=== PATIENT | female | born 1985 | race Caucasian/White ===

== ENCOUNTER 2018-05-14 02:31 | Emergency (ER) | payer OTHER ==
[~2018-05-14] VITALS: Ht 162.6 cm; Wt 59.0 kg
[~2018-05-14 02:31] MED LIST: ANTIVERT25 MG PO; NORCO 5-325 TA1 EACH PO; OMEGA-31000 M1 PO; PROBIOTIC1 EAC1 PO; TRINATE TABLET1 TAB PO; ZOFRAN ODT4 MG PO
[2018-05-14] MEDS ORDERED: EFFEXOR XR75 MG PO (02:40)
[2018-05-14] MEDS ORDERED: ADDERALL 10 MG10 MG PO (02:41)
[2018-05-14] MEDS ORDERED: DOXYCYCLINE 10100 M1 PO (04:43)
[2018-05-14] MEDS ORDERED: PERCOCET 7.5-31 EACH PO (04:43)
[2018-05-14 05:18] VITALS: BP 101/65
== END 2018-05-14 05:18 | disposition home or self-care (01) ==
LOC: M.ERS 02:31
DX: S62.624B Displaced fracture of middle phalanx of right ring finger, initial encounter for open fracture (principal); S61.214A Laceration without foreign body of right ring finger without damage to nail, initial encounter; Z88.2 Allergy status to sulfonamides; W54.0XXA Bitten by dog, initial encounter; Y93.89 Activity, other specified; Y92.89 Other specified places as the place of occurrence of the external cause; Y99.8 Other external cause status

== ENCOUNTER 2018-05-14 16:21 | Emergency (ER) | payer OTHER ==
[~2018-05-14] VITALS: Ht 162.6 cm; Wt 59.0 kg
[~2018-05-14 16:21] MED LIST changes: +ADDERALL 10 MG10 MG PO; +DOXYCYCLINE 10100 M1 PO; +EFFEXOR XR75 MG PO; +PERCOCET 7.5-31 EACH PO
[2018-05-14 16:25] VITALS: BP 112/73
== END 2018-05-14 18:01 | disposition home or self-care (01) ==
LOC: M.ERS 16:21
DX: S61.214A Laceration without foreign body of right ring finger without damage to nail, initial encounter (principal); Z88.2 Allergy status to sulfonamides; Z98.890 Other specified postprocedural states; W54.0XXA Bitten by dog, initial encounter; Y92.89 Other specified places as the place of occurrence of the external cause; Y93.89 Activity, other specified; Y99.8 Other external cause status

== ENCOUNTER 2019-04-02 09:45 | Emergency (ER) | payer OTHER ==
[~2019-04-02] VITALS: Ht 162.6 cm; Wt 59.0 kg
[2019-04-02 10:35] LABS: INFLUENZA A ANTIGEN Negative (Negative); INFLUENZA B ANTIGEN Negative (Negative)
[2019-04-02] MEDS ORDERED: AMOXICILLIN 50500 MG PO (10:47)
[2019-04-02] MEDS ORDERED: ZOFRAN ODT4 MG PO (10:48)
[2019-04-02 11:02] VITALS: BP 118/74
== END 2019-04-02 11:00 | disposition home or self-care (01) ==
LOC: M.ERS 09:45
PROVIDERS: Nurse Practitioner Family
DX: J02.0 Streptococcal pharyngitis (principal); Z88.2 Allergy status to sulfonamides; Z90.710 Acquired absence of both cervix and uterus; Z98.890 Other specified postprocedural states

== ENCOUNTER 2020-01-24 01:20 | Emergency (ER) | payer OTHER ==
[~2020-01-24] VITALS: Ht 160 cm; Wt 61.2 kg
[~2020-01-24 01:20] MED LIST changes: +AMOXICILLIN 50500 MG PO
[2020-01-24] MEDS ORDERED: TORADOL 10 MG T10 MG PO (04:38)
[2020-01-24] MEDS ORDERED: CYCLOBENZAPRINE5 MG PO (04:38)
[2020-01-24] MEDS ORDERED: HYDROCODON-ACE1 EAC7 PO (04:38)
[2020-01-24 04:52] VITALS: BP 129/78
== END 2020-01-24 04:52 | disposition home or self-care (01) ==
LOC: M.ERS 01:20
DX: M54.12 Radiculopathy, cervical region (principal); M25.512 Pain in left shoulder; Z98.890 Other specified postprocedural states; Z90.710 Acquired absence of both cervix and uterus; Z98.82 Breast implant status; Z89.021 Acquired absence of right finger(s); Z88.2 Allergy status to sulfonamides